=== PATIENT | female | born 1975 | race African-American/Black ===

== ENCOUNTER 2022-04-12 05:23 | Day surgery (SDC) | payer MEDICAID ==
[~2022-04-12] VITALS: Ht 167.6 cm; Wt 92.2 kg
[2022-04-12] VITALS (7 sets, daily range): BP systolic 120–144; BP diastolic 68–85
[2022-04-12] MEDS ORDERED: ANESTHESIA TRAY IN PYXIS 1 EA TRAY MC ONE (05:45)
[2022-04-12] MEDS ORDERED: BUPIVACAINE 0.5 % PF 150 MG/30 ML VIAL ONE (05:46)
[2022-04-12] MEDS ORDERED: FENTANYL PF 100MCG/2ML AMPUL ONE (06:17)
[2022-04-12] MEDS ORDERED: MIDAZOLAM HCL 2 MG/2ML VIAL ONE (06:18)
--- NOTE | 2022-04-12 06:45 | NUR ---
MS RN NOTES RECEIVED PATIENT FROM HOME TO THE UNIT AT 0645 AM. PATIENT IS A/O TIMES 4. NO PAIN NOTED. NO SOB NOTED. NO DISTRESS NOTED. ON ROOM AIR AND TOLERATING WELL. PATIENT SIGNED ALL THE CONSENT FORMS.ABLE TO MAKE NEEDS KNOWN. PATIENT AMBULATORY. ALL THE BELONGINGS ACCOUNTED AND SIGNED FOR. VITAL SIGNS IN NORMAL RANGES. NO ISOLATION NOTED. OVERALL SKIN INTACT. ALL NEEDS ATTENDED. PATIENT PICKED UP BY SURGERY TEAM AT 0615. WILL ENDORSE TO INCOMING SHIFT NURSE FOR [facility]ILNER.
--- NOTE | 2022-04-12 07:17 | NUR ---
RN OPENING NOTES RECEIVED REPORT FORM ASSISTANT OCEANOGRAPHER RN ANI THAT PATIENT IS IN THE SURGERY RIGHT NOW.
--- NOTE | 2022-04-12 08:00 | NUR ---
RN NOTES PT RETURNED FROM SURGERY AWAKE, A/O X4 ACCOMPANIED BY RN CALE. PT IS S/P ARTHROSCOPY OF RIGHT WRIST, EXCISION OF MAJOR RIGHT DORSAL GANGLION CYST. PT WITH DRESSING IN PLACE TO RIGHT WRIST C/D/I WRAPPED WITH MALLORY BANDAGE, PT ABLE TO MOVE ALL FINGERS WITH NO SWELLING OBSERVED. PT ON ROOM AIR, TOLERATING WELL, NO C/O PAIN AT THIS TIME. IV ACCESS NOTED ON LEFT HAND G#18 PATENT AND FLUSHES WELL. V/S TAKEN AND RECORDED. SAFETY MEASURES IMPLEMENTED: BED PLACED IN LOWEST LOCKED POSITION WITH SR UP X2. CALL LIGHT W/IN REACH. WILL MONITOR PT ACCORDINGLY.
[2022-04-12] MEDS ORDERED: ATOR20TA PO (08:15)
[2022-04-12] MEDS ORDERED: ASPI-1420 PO (08:15)
[2022-04-12] MEDS ORDERED: LEVO5TAB13 PO (08:15)
[2022-04-12] MEDS ORDERED: METO50TA16 PO (08:15)
[2022-04-12] MEDS ORDERED: HYDR-3980 PO (08:15)
[2022-04-12] MEDS ORDERED: PREG-58 PO (08:15)
[2022-04-12] MEDS ORDERED: HYDR12.55 PO (08:15)
[2022-04-12] MEDS ORDERED: TACR30OI4 TP (08:15)
[2022-04-12] MEDS ORDERED: LOSA50TA39 PO (08:15)
--- NOTE | 2022-04-12 13:14 | NUR ---
RN DISCHARGED NOTES PT DISCHARGED HOME IN STABLE CONDITION. A/O X4. ABLE TO MAKE NEEDS KNOWN. ON RA, TOLERATING WELL, NO SOB NOTED. ALL BELONGINGS ACCOUNTED FOR AND PT SIGNED BELONGINGS LIST. IV ACCESS ON LEFT HAND G#18 REMOVED WITH NO ACTIVE BLEEDING NOTED, DRY DRESSING APPLIED AT SITE. DRESSING ON RIGHT WRIST WRAPPED WITH MALLORY BANDAGE C/D/I. HEALTH TEACHINGS/DISCHARGE INSTRUCTIONS GIVEN TO PT AND VERBALIZED UNDERSTANDING. NAME [facility] REMOVED. PT LEFT UNIT @ 1230 VIA WHEELCHAIR ACCOMPANIED BY CHINO HARMAN AND PT'S KARINA SMITH. AND CHARGE NURSE AWARE OF DISCHARGE.
== END 2022-04-12 16:00 | disposition home or self-care (01) ==
LOC: DS 05:23 → MED 05:25 → UNDOADMIN 05:25 → DS 16:00 → UNDODISIN 17:47
PROVIDERS: ATTEND Specialist
DX: M67.431 Ganglion, right wrist (principal); M65.841 Other synovitis and tenosynovitis, right hand; Z98.890 Other specified postprocedural states; Z79.899 Other long term (current) drug therapy
CPT/HCPCS: 26116; 25111; 88304; 84703; 87081; J0690; J3490 ×2; J2704; J3010; J2405; J2250; A6402; G0378

== ENCOUNTER 2022-10-19 18:44 | Inpatient (IN) | payer MEDICAID ==
[~2022-10-19] VITALS: Ht 167.6 cm; Wt 92.5 kg
[~2022-10-19 18:44] MED LIST: ASPI-1420 PO; ATOR20TA PO; HYDR-3980 PO; HYDR12.55 PO; LEVO5TAB13 PO; LOSA50TA39 PO; METO50TA16 PO; PREG-58 PO; TACR30OI4 TP
[2022-10-19 20:17] LABS: BASOPHILS # (AUTO) 0.1 K/uL (0.0-0.2); BASOPHILS % (AUTO) 0.5 % (0.0-2.0); EOSINOPHILS # (AUTO) 0.2 K/uL (0.0-0.7); EOSINOPHILS % (AUTO) 1.8 % (0.0-6.0); HEMATOCRIT 37 % (33-45); HEMOGLOBIN 12.2 g/dL (11.5-14.8); LYMPHOCYTES # (AUTO) 3.3 K/uL (0.8-4.8); MEAN CORPUSCULAR HEMOGLOBIN 28 PG (26.0-33.0); MEAN CORPUSCULAR HGB CONC 33 g/dl (31.0-36.0); MEAN CORPUSCULAR VOLUME 87 fL (82-100); MONOCYTES # (AUTO) 0.8 K/uL (0.1-1.30); NEUTROPHILS # (AUTO) 6.9 K/uL (1.8-8.9); NEUTROPHILS % (AUTO) 61.7 % (43.0-81.0); PLATELET COUNT (AUTO) 379 K/uL (150-450); RED BLOOD CELL COUNT(AUTO) 4.28 MIL/uL (4.0-5.2); RED CELL DISTRIBUTION WIDTH 14.7 % (11.5-15.0); WHITE BLOOD COUNT (AUTO) 11.3 K/uL (4.3-11.0)
[2022-10-19] MEDS ORDERED: IV NS 0.9% 250 ML IV ONE (20:18)
[2022-10-19] MEDS ORDERED: IOHEXOL-300 100 ML VIAL IV ONE (20:18)
[2022-10-19] MEDS ORDERED: CT SWABBABLE VALVE TRANS SET 1 EA INFUS.SET MC ONE (20:18)
[2022-10-19 20:33] LABS: CALCIUM, SERUM 9.3 mg/dL (8.5-10.1); POTASSIUM 3.6 mmol/L (3.5-5.1)
[2022-10-19 20:40] LABS: ALBUMIN 3.6 g/dL (3.4-5.0); BILIRUBIN,DIRECT 0.1 mg/dL (0.0-0.2); BILIRUBIN,TOTAL 0.2 mg/dL (0.2-1.0); TOTAL PROTEIN, SERUM 8.6 g/dL (6.4-8.2)
[2022-10-19] MEDS ORDERED: VANCOMYCIN 1 GM in IV D5W 250 ML IV ONE (21:30)
[2022-10-19] MEDS ORDERED: PIPERACILLIN /TAZOBACTAM 3.375 G in IV D5W 50 ML IV ONE (21:30)
[2022-10-19] MEDS ORDERED: IV NS 0.9% 1,000 ML BAG IV ONE (21:30)
[2022-10-19] MEDS ORDERED: PIPERACI/TAZO 3.375GM/D5W 50ML PB IV ONE (21:44)
[2022-10-19] MEDS ORDERED: VANCOMYCIN 1 GM /D5W 250 ML PB IV ONE (21:44)
[2022-10-19 23:00] VITALS: BP 127/95; TEMP 97.9; O2SAT 99
[2022-10-19] MEDS ORDERED: MAGNESIUM HYDROXIDE 30 ML UDC PO PRN (23:00)
[2022-10-19] MEDS ORDERED: MAG HYDROX/AL HYDROX/SIMETH 30 ML UDC PO PRN (23:00)
[2022-10-19] MEDS ORDERED: ZOLPIDEM TARTRATE 5 MG TABLET PO PRN (23:00)
[2022-10-19] MEDS ORDERED: ACETAMINOPHEN 325 MG TABLET PO PRN (23:00)
[2022-10-19] MEDS ORDERED: HYDROCODONE/APAP 5/325MG TABLET PO PRN (23:00)
[2022-10-19] MEDS ORDERED: Z GUARD REMEDY 4 OZ OINT TP PRN (23:00)
[2022-10-19] MEDS ORDERED: VANCOMYCIN 1 GM in IV D5W 250ml IV ONE (23:30)
[2022-10-19] MEDS ORDERED: VANCOMYCIN 500 MG in IV D5W 100ml IV ONE (23:30)
[2022-10-19] MEDS: IV 1/2NS 1000 ML 1,000 ML IV PRN (23:39)
[2022-10-19] MEDS: METOPROLOL TARTRATE 50 MG TABLET PO SCH (23:39)
[2022-10-19] MEDS: LOSARTAN POTASSIUM 50 MG TABLET PO SCH (23:40)
[2022-10-19] MEDS: MORPHINE SULFATE INJ 2 MG/ML DISP.SYRIN IV PRN (23:55)
[2022-10-20] MEDS ORDERED: PIPERACILLIN /TAZOBACTAM 4.5 G in IV D5W 50 ML IV SCH ×4
[2022-10-20] MEDS ORDERED: VANCOMYCIN 1 GM /D5W 250 ML PB IV ONE (00:18)
[2022-10-20] MEDS ORDERED: PIPERCILLIN/TAZOBACTAM 2.25GM/D5W 50MLPB IV ONE ×2 (00:51→02:03)
[2022-10-20 05:45] LABS: BASOPHILS % (AUTO) 0.4 % (0.0-2.0); EOSINOPHILS # (AUTO) 0.2 K/uL (0.0-0.7); EOSINOPHILS % (AUTO) 2.9 % (0.0-6.0); HEMATOCRIT 35 % (33-45); HEMOGLOBIN 11.7 g/dL (11.5-14.8); LYMPHOCYTES # (AUTO) 2.7 K/uL (0.8-4.8); LYMPHOCYTES % (AUTO) 31.1 % (20.0-44.0); MEAN CORPUSCULAR HEMOGLOBIN 29 PG (26.0-33.0); MEAN CORPUSCULAR HGB CONC 34 g/dl (31.0-36.0); MEAN CORPUSCULAR VOLUME 86 fL (82-100); MONOCYTES # (AUTO) 0.6 K/uL (0.1-1.30); MONOCYTES % (AUTO) 6.4 % (2.0-12.0); NEUTROPHILS # (AUTO) 5.2 K/uL (1.8-8.9); NEUTROPHILS % (AUTO) 59.2 % (43.0-81.0); PLATELET COUNT (AUTO) 324 K/uL (150-450); RED BLOOD CELL COUNT(AUTO) 4.06 MIL/uL (4.0-5.2); RED CELL DISTRIBUTION WIDTH 14.4 % (11.5-15.0); WHITE BLOOD COUNT (AUTO) 8.7 K/uL (4.3-11.0)
[2022-10-20 05:54] LABS: PARTIAL THROMBOPLASTIN TIME 28.3 SEC (24.3-34.3); PROTHROMBIN TIME 10.5 SECS (9.2-11.1)
[2022-10-20 06:03] LABS: CALCIUM, SERUM 8.8 mg/dL (8.5-10.1); MAGNESIUM 1.9 mg/dL (1.8-2.4); POTASSIUM 3.7 mmol/L (3.5-5.1)
[2022-10-20] MEDS: PANTOPRAZOLE 40 MG TABLET.DR PO SCH (07:30)
[2022-10-20 08:00] VITALS: BP 132/75; TEMP 98.9; O2SAT 98
[2022-10-20] MEDS: VANCOMYCIN HCL 0.75 GM in IV D5W 250 ML IV SCH ×3 (08:45→23:57)
[2022-10-20] MEDS: METOPROLOL TARTRATE 50 MG TABLET PO SCH ×2 (09:00→21:46)
[2022-10-20] MEDS: LOSARTAN POTASSIUM 50 MG TABLET PO SCH ×2 (09:00→16:38)
[2022-10-20] MEDS: HYDROCHLOROTHIAZIDE 25 MG TABLET PO SCH (09:00)
[2022-10-20] MEDS: PREGABALIN 25 MG CAPSULE PO SCH ×2 (09:00→16:10)
[2022-10-20] MEDS: ASPIRIN EC 81 MG TABLET.DR PO SCH (09:00)
[2022-10-20] MEDS ORDERED: ACETAMINOPHEN 325 MG TABLET PO ONE (10:00)
[2022-10-20] MEDS ORDERED: GABAPENTIN 300 MG CAPSULE PO ONE (10:00)
[2022-10-20] MEDS ORDERED: BUPIVACAINE 0.25% 75 MG/30 ML VIAL ONE (10:12)
[2022-10-20] MEDS ORDERED: POLYMYXIN B SULFATE 500,000 UNITS ONE ×2 (10:12→12:23)
[2022-10-20] MEDS ORDERED: VANCOMYCIN 1 GM VIAL ONE (10:13)
[2022-10-20] MEDS: PIPERACILLIN /TAZOBACTAM 3.375 G in IV D5W 100 ML IV SCH ×2 (10:41→18:03)
[2022-10-20] MEDS ORDERED: ACETAMINOPHEN ES 500 MG TABLET ONE (11:12)
[2022-10-20 11:22] LABS: PREGNANCY TEST URINE QUAL NEGATIVE (NEGATIVE)
[2022-10-20] MEDS ORDERED: FENTANYL PF 100MCG/2ML AMPUL ONE ×2 (11:27→12:51)
[2022-10-20] MEDS ORDERED: MIDAZOLAM HCL 2 MG/2ML VIAL ONE ×2 (11:28→13:58)
[2022-10-20] MEDS ORDERED: SUCCINYLCHOLINE CHLORIDE 20 MG/ML VIAL ONE (11:28)
[2022-10-20] MEDS ORDERED: LIDOCAINE 2% 50 ML MDV IJ ONE (13:22)
[2022-10-20 16:00] VITALS: BP_SYST 134; BP_SYST 153; BP_DIAS 109; BP_DIAS 76; TEMP 98; TEMP 98.1; O2SAT 100; O2SAT 98
[2022-10-20] MEDS: MORPHINE SULFATE INJ 2 MG/ML DISP.SYRIN IV PRN ×2 (16:08→21:46)
[2022-10-20] MEDS: ONDANSETRON HCL/PF 4 MG/2 ML VIAL IVP PRN (19:11)
[2022-10-20 20:00] VITALS: BP 153/90; TEMP 98.2; O2SAT 99
[2022-10-20] MEDS: ATORVASTATIN 10 MG TABLET PO SCH (21:45)
[2022-10-21] MEDS: PIPERACILLIN /TAZOBACTAM 3.375 G in IV D5W 100 ML IV SCH ×3 (02:05→17:23)
[2022-10-21] MEDS: IV 1/2NS 1000 ML 1,000 ML IV PRN (02:05)
[2022-10-21] MEDS: MORPHINE SULFATE INJ 2 MG/ML DISP.SYRIN IV PRN ×4 (04:17→17:14)
[2022-10-21] MEDS: HYDROCODONE/APAP 10/325MG TABLET PO PRN (05:48)
[2022-10-21 05:50] LABS: BASOPHILS % (AUTO) 0.4 % (0.0-2.0); EOSINOPHILS # (AUTO) 0.2 K/uL (0.0-0.7); EOSINOPHILS % (AUTO) 1.6 % (0.0-6.0); HEMATOCRIT 35 % (33-45); HEMOGLOBIN 11.8 g/dL (11.5-14.8); LYMPHOCYTES % (AUTO) 21.3 % (20.0-44.0); MEAN CORPUSCULAR HEMOGLOBIN 29 PG (26.0-33.0); MEAN CORPUSCULAR HGB CONC 34 g/dl (31.0-36.0); MEAN CORPUSCULAR VOLUME 85 fL (82-100); MONOCYTES # (AUTO) 0.8 K/uL (0.1-1.30); MONOCYTES % (AUTO) 8.1 % (2.0-12.0); NEUTROPHILS # (AUTO) 6.6 K/uL (1.8-8.9); NEUTROPHILS % (AUTO) 68.6 % (43.0-81.0); PLATELET COUNT (AUTO) 350 K/uL (150-450); RED BLOOD CELL COUNT(AUTO) 4.04 MIL/uL (4.0-5.2); RED CELL DISTRIBUTION WIDTH 14.1 % (11.5-15.0); WHITE BLOOD COUNT (AUTO) 9.6 K/uL (4.3-11.0)
[2022-10-21 05:57] LABS: CALCIUM, SERUM 9.1 mg/dL (8.5-10.1); POTASSIUM 3.7 mmol/L (3.5-5.1)
[2022-10-21] MEDS: PANTOPRAZOLE 40 MG TABLET.DR PO SCH (07:58)
[2022-10-21 08:00] VITALS: BP_SYST 115; BP_SYST 140; BP_DIAS 61; BP_DIAS 77; TEMP 98.8; TEMP 99.3; O2SAT 96; O2SAT 99
[2022-10-21] MEDS: VANCOMYCIN HCL 0.75 GM in IV D5W 250 ML IV SCH ×2 (08:55→16:07)
[2022-10-21] MEDS: HYDROCHLOROTHIAZIDE 25 MG TABLET PO SCH (08:56)
[2022-10-21] MEDS: LOSARTAN POTASSIUM 50 MG TABLET PO SCH ×2 (08:56→17:01)
[2022-10-21] MEDS: METOPROLOL TARTRATE 50 MG TABLET PO SCH ×2 (08:56→21:21)
[2022-10-21] MEDS: PREGABALIN 25 MG CAPSULE PO SCH ×3 (08:57→16:11)
[2022-10-21] MEDS: ASPIRIN EC 81 MG TABLET.DR PO SCH (08:57)
[2022-10-21] MEDS: ONDANSETRON HCL/PF 4 MG/2 ML VIAL IVP PRN (09:24)
[2022-10-21 11:47] VITALS: BP 140/77; TEMP 99.3; O2SAT 99
[2022-10-21] MEDS: METOCLOPRAMIDE HCL 10 MG/2 ML VIAL IV PRN ×2 (13:03→20:47)
[2022-10-21 20:00] VITALS: BP 130/66; TEMP 98.8; O2SAT 96
[2022-10-21] MEDS: ATORVASTATIN 10 MG TABLET PO SCH (21:21)
[2022-10-22] MEDS: VANCOMYCIN HCL 0.75 GM in IV D5W 250 ML IV SCH ×3 (00:51→20:21)
[2022-10-22] MEDS: PIPERACILLIN /TAZOBACTAM 3.375 G in IV D5W 100 ML IV SCH ×3 (01:32→17:31)
[2022-10-22] MEDS: MORPHINE SULFATE INJ 2 MG/ML DISP.SYRIN IV PRN (06:36)
[2022-10-22] MEDS: PANTOPRAZOLE 40 MG TABLET.DR PO SCH (07:42)
[2022-10-22 07:51] LABS: CREATININE 1.2 mg/dL (0.6-1.3); POTASSIUM 3.4 mmol/L (3.5-5.1)
[2022-10-22] MEDS: PREGABALIN 25 MG CAPSULE PO SCH ×2 (08:21→16:38)
[2022-10-22] MEDS: LOSARTAN POTASSIUM 50 MG TABLET PO SCH ×2 (08:21→16:39)
[2022-10-22] MEDS: METOPROLOL TARTRATE 50 MG TABLET PO SCH ×2 (08:21→21:49)
[2022-10-22] MEDS: ASPIRIN EC 81 MG TABLET.DR PO SCH (08:21)
[2022-10-22] MEDS: ACIDOPHILUS/BULGARICUS 1 EACH TAB.CHEW PO SCH ×3 (08:22→16:38)
[2022-10-22] MEDS: HYDROCHLOROTHIAZIDE 25 MG TABLET PO SCH (08:22)
[2022-10-22 08:23] VITALS: BP 132/67; TEMP 98.2; O2SAT 98
[2022-10-22] MEDS ORDERED: POTASSIUM CHLORIDE 20 MEQ TAB.PRT.SR PO ONE (12:00)
[2022-10-22] MEDS ORDERED: HYDROCODONE/APAP 10/325MG TABLET PO PRN (12:30)
[2022-10-22] MEDS ORDERED: PROCHLORPERAZINE EDISYLATE 10 MG/2 ML VIAL IM PRN (12:30)
[2022-10-22 16:51] VITALS: BP 140/85; TEMP 99; O2SAT 97
[2022-10-22] MEDS: HYDROCODONE/APAP 10/325MG TABLET PO PRN (18:48)
[2022-10-22 20:00] VITALS: BP 132/81; TEMP 98.2; O2SAT 96
[2022-10-22] MEDS: ATORVASTATIN 10 MG TABLET PO SCH (21:49)
[2022-10-23] MEDS: PIPERACILLIN /TAZOBACTAM 3.375 G in IV D5W 100 ML IV SCH ×3 (02:59→18:07)
[2022-10-23 05:55] LABS: CALCIUM, SERUM 9.4 mg/dL (8.5-10.1); CREATININE 1.2 mg/dL (0.6-1.3); POTASSIUM 3.3 mmol/L (3.5-5.1)
[2022-10-23] MEDS: PANTOPRAZOLE 40 MG TABLET.DR PO SCH (07:35)
[2022-10-23] MEDS: VANCOMYCIN HCL 0.75 GM in IV D5W 250 ML IV SCH ×2 (07:42→20:55)
[2022-10-23 08:00] VITALS: BP 133/77; TEMP 98.6; O2SAT 98
[2022-10-23] MEDS: PREGABALIN 25 MG CAPSULE PO SCH ×2 (09:23→16:57)
[2022-10-23] MEDS: ASPIRIN EC 81 MG TABLET.DR PO SCH (09:23)
[2022-10-23] MEDS: ACIDOPHILUS/BULGARICUS 1 EACH TAB.CHEW PO SCH ×3 (09:24→16:57)
[2022-10-23] MEDS: HYDROCHLOROTHIAZIDE 25 MG TABLET PO SCH (09:24)
[2022-10-23] MEDS: LOSARTAN POTASSIUM 50 MG TABLET PO SCH ×2 (09:25→16:57)
[2022-10-23] MEDS: METOPROLOL TARTRATE 50 MG TABLET PO SCH ×2 (09:25→20:57)
[2022-10-23] MEDS: HYDROCODONE/APAP 10/325MG TABLET PO PRN (09:32)
[2022-10-23] MEDS ORDERED: POTASSIUM CHLORIDE 20 MEQ TAB.PRT.SR PO ONE (11:00)
[2022-10-23] MEDS: IV 1/2NS 1000 ML 1,000 ML IV PRN (11:47)
[2022-10-23] MEDS: ONDANSETRON HCL/PF 4 MG/2 ML VIAL IVP PRN (12:40)
[2022-10-23 16:00] VITALS: BP 127/81; TEMP 98; O2SAT 100
[2022-10-23] MEDS: MORPHINE SULFATE INJ 2 MG/ML DISP.SYRIN IV PRN (18:08)
[2022-10-23 20:00] VITALS: BP 109/80; TEMP 98.8; O2SAT 96
[2022-10-23] MEDS: ATORVASTATIN 10 MG TABLET PO SCH (21:15)
[2022-10-24] MEDS: PIPERACILLIN /TAZOBACTAM 3.375 G in IV D5W 100 ML IV SCH (01:08)
[2022-10-24 06:03] LABS: CALCIUM, SERUM 9.3 mg/dL (8.5-10.1); CREATININE 1.4 mg/dL (0.6-1.3); POTASSIUM 3.7 mmol/L (3.5-5.1)
[2022-10-24] MEDS: PANTOPRAZOLE 40 MG TABLET.DR PO SCH (07:37)
[2022-10-24 08:00] VITALS: BP 117/86; TEMP 97.3; O2SAT 100
[2022-10-24] MEDS: VANCOMYCIN HCL 0.75 GM in IV D5W 250 ML IV SCH (08:25)
[2022-10-24] MEDS: PREGABALIN 25 MG CAPSULE PO SCH (08:48)
[2022-10-24] MEDS: ASPIRIN EC 81 MG TABLET.DR PO SCH (08:48)
[2022-10-24] MEDS: ACIDOPHILUS/BULGARICUS 1 EACH TAB.CHEW PO SCH ×2 (08:48→12:00)
[2022-10-24] MEDS: METOPROLOL TARTRATE 50 MG TABLET PO SCH (08:49)
[2022-10-24] MEDS: LOSARTAN POTASSIUM 50 MG TABLET PO SCH (08:49)
[2022-10-24] MEDS: MORPHINE SULFATE INJ 2 MG/ML DISP.SYRIN IV PRN (10:52)
[2022-10-24] MEDS ORDERED: LEVOFLOXACIN (250MG) 250 MG TABLET PO SCH (11:00)
[2022-10-24] MEDS ORDERED: PREG25CA PO (15:11)
[2022-10-24] MEDS ORDERED: LEVO750T46 PO (15:11)
[2022-10-24 16:45] VITALS: BP 132/84; TEMP 98.1; O2SAT 100
== END 2022-10-24 16:45 | disposition home or self-care (01) | DRG 711 ==
LOC: ER 18:47 → MED 22:12
PROVIDERS: ATTEND Nurse Practitioner Acute Care
PROC: 0QBM0ZZ Excision of Left Tarsal, Open Approach (ICD-10-PCS; principal; 2022-10-19)
PROC: 02HV33Z Insertion of Infusion Device into Superior Vena Cava, Percutaneous Approach (ICD-10-PCS; 2022-10-23)
PROC: B548ZZA Ultrasonography of Superior Vena Cava, Guidance (ICD-10-PCS; 2022-10-23)
DX: T81.49XA Infection following a procedure, other surgical site, initial encounter (principal); N17.9 Acute kidney failure, unspecified; L97.529 Non-pressure chronic ulcer of other part of left foot with unspecified severity; M86.8X7 Other osteomyelitis, ankle and foot; E78.5 Hyperlipidemia, unspecified; Y83.8 Other surgical procedures as the cause of abnormal reaction of the patient, or of later complication, without mention of misadventure at the time of the procedure; I10 Essential (primary) hypertension; L02.612 Cutaneous abscess of left foot; E66.9 Obesity, unspecified; G89.4 Chronic pain syndrome; Z79.891 Long term (current) use of opiate analgesic; Y92.009 Unspecified place in unspecified non-institutional (private) residence as the place of occurrence of the external cause; L70.9 Acne, unspecified
CPT/HCPCS: 36415; 36569; 71045-TC; 73630-TC; 73701-TC; 74018; 80048-TC; 80076-TC; 80202-TC; 83735-TC; 84100-TC; 84703-TC; 85025-TC; 85610-TC; 85652-TC; 85730-TC; 86140-TC; 86850-TC; 87040-TC; 87081-TC; 93926-TC; 97116-TC; 97530-TC; A4217; A4223; A6253; A6403; A6407; G0378; J0330; J0780; J2250; J2270; J2405; J2543; J2704; J2765; J3010; J3370; J3490; J7030; J7050; J7060; Q9967

== ENCOUNTER 2024-05-03 05:03 | Day surgery (SDC) | payer OTHER ==
[~2024-05-03 05:03] MED LIST changes: -ASPI-1420 PO; +LEVO750T46 PO; +PREG25CA PO; -TACR30OI4 TP
[2024-05-03] MEDS ORDERED: BUPIVACAINE 0.5 % PF 150 MG/30 ML VIAL ONE (05:45)
[2024-05-03] MEDS ORDERED: ANESTHESIA TRAY IN PYXIS 1 EA TRAY MC ONE (05:45)
[2024-05-03] MEDS ORDERED: EPINEPHRINE (1:1000) 1 MG/ML AMPUL ONE (05:45)
[2024-05-03 06:03] LABS: PREGNANCY TEST URINE QUAL NEGATIVE (NEGATIVE)
[2024-05-03] MEDS ORDERED: ACETAMINOPHEN 325 MG TABLET ONE (06:27)
[2024-05-03] MEDS ORDERED: ROPIVACAINE HCL 0.5% 5 MG/ML 30ML VIAL ONE (06:28)
[2024-05-03] MEDS ORDERED: MIDAZOLAM HCL 2 MG/2ML VIAL ONE (06:29)
[2024-05-03] MEDS ORDERED: FENTANYL PF 100MCG/2ML AMPUL ONE (06:29)
[2024-05-03] MEDS ORDERED: FAMOTIDINE/PF INJ 20 MG/2 ML VIAL IV ONE (06:29)
[2024-05-03] MEDS: ACETAMINOPHEN 325 MG TABLET PO PRN (06:31)
== END 2024-05-03 10:25 | disposition home or self-care (01) ==
LOC: DS 05:03
PROVIDERS: ATTEND Specialist
DX: S83.242A Other tear of medial meniscus, current injury, left knee, initial encounter (principal); S83.282A Other tear of lateral meniscus, current injury, left knee, initial encounter; M94.262 Chondromalacia, left knee; M23.42 Loose body in knee, left knee; I10 Essential (primary) hypertension; E78.5 Hyperlipidemia, unspecified; J45.909 Unspecified asthma, uncomplicated; E66.9 Obesity, unspecified; Z68.21 Body mass index [BMI] 21.0-21.9, adult; Z79.899 Other long term (current) drug therapy; Z88.1 Allergy status to other antibiotic agents; Z88.8 Allergy status to other drugs, medicaments and biological substances; Z91.018 Allergy to other foods; Z98.890 Other specified postprocedural states; X58.XXXA Exposure to other specified factors, initial encounter; Y93.89 Activity, other specified; Y92.89 Other specified places as the place of occurrence of the external cause; Y99.8 Other external cause status
CPT/HCPCS: 29880; 64447; 84703; A4217; J0171; J0690; J1100; J1885; J2250; J2405; J2704; J2765; J2795; J3010; J3490; J7030